=== PATIENT | male | born 1955 | race Caucasian/White ===

== ENCOUNTER 2018-06-21 17:50 | Emergency (ER) | payer BC ==
[2018-06-21 20:01] VITALS: BP 176/106
== END 2018-06-21 20:08 | disposition home or self-care (01) ==
LOC: ED 19:06
DX: J45.909 Unspecified asthma, uncomplicated (principal); J70.5 Respiratory conditions due to smoke inhalation
CPT/HCPCS: 71046; 93005; 99284